=== PATIENT | male | born 1990 | race Caucasian/White ===

== ENCOUNTER 2021-09-22 09:47 | Emergency (ER) | payer OTHER ==
[2021-09-22] MEDS ORDERED: Gabapentin 300 MG CAP ONE (11:16)
== END 2021-09-22 11:30 ==
LOC: EEVIPCON 09:47 → CSHERS 09:47
DX: G40.909 Epilepsy, unspecified, not intractable, without status epilepticus (principal)
CPT/HCPCS: 93005

== ENCOUNTER 2021-10-12 19:20 | Emergency (ER) | payer OTHER ==
[2021-10-12] MEDS ORDERED: levETIRAcetam in NS 100 ML ONE (19:50)
[2021-10-12 20:20] LABS: SARS-CoV-2 NAA Rapid Test Not Detected (NotDetected)
[2021-10-12 21:03] LABS: ALT (SGPT) 123 U/L (8-55); AST (SGOT) 61 U/L (5-34); Alkaline Phosphatase 54 U/L (40-110); Anion Gap 14 mmol/L (10-20); BUN (Urea Nitrogen) 8 mg/dL (8.9-20.6); Bilirubin, Total 0.5 mg/dL (0.2-1.2); Calc. Creatinine Clearance 0 mL/min (70-130); Calcium 8.6 mg/dL (7.8-10.44); Carbon Dioxide 25 mmol/L (22-29); Chloride 106 mmol/L (98-107); Estimated GFR 119; Globulin 2.5 g/dL (2.4-3.5); Glucose 89 mg/dL (70-105); Potassium 3.9 mmol/L (3.5-5.1); Protein, Total 6.5 g/dL (6.0-8.3); Sodium 141 mmol/L (136-145)
[2021-10-12 21:04] LABS: #Monocytes 0.5 10x3/uL (0.0-1.1); #Neutrophils 5.6 10x3/uL (1.5-8.4); %Basophils 0.4 % (0.0-2.0); %Eosinophils 0.4 % (0.0-6.0); %Lymphocytes 24.6 % (18.0-47.0); %Monocytes 5.6 % (0.0-10.0); %Neutrophils 68.9 % (40.0-75.0); Hemoglobin 12.5 g/dL (13.5-17.5); Mean Corpuscular HGB CONC 34.6 g/dL (32.0-36.0); Mean Corpuscular Hemoglobin 29.3 pg (27.0-33.0); Mean Corpuscular Volume 84.5 fl (81.2-95.1); Mean Platelet Volume 11.4 fl (7.4-10.4); Platelet Count 237 10x3/uL (150-450); RBC Distribution Width 12.5 % (11.5-14.5); Red Blood Cell (RBC) Count 4.27 10x6/uL (4.32-5.72); White Blood Cell (WBC) Count 8.2 10x3/uL (3.5-10.5)
== END 2021-10-12 22:04 ==
LOC: EEVIPCON 19:20 → CSHERS 19:20
DX: G40.409 Other generalized epilepsy and epileptic syndromes, not intractable, without status epilepticus (principal); Z20.822 Contact with and (suspected) exposure to COVID-19
CPT/HCPCS: 36415; 36416; 70450; 80053; 85025; J1953; U0002